=== PATIENT | male | born 2000 | race Caucasian/White ===

== ENCOUNTER 2022-04-16 03:28 | Emergency (ER) | payer SELFPAY ==
[~2022-04-16] VITALS: Ht 188 cm; Wt 116.0 kg
[2022-04-16] MEDS ORDERED: BACITRACIN ZINC OINT UDPKT TOP ONE (05:30)
[2022-04-16] MEDS ORDERED: TETANUS, DIPHTHERIA, PERTUSSIS VAC/PF 0.5ML (>10YR OLD) IM ONE (05:30)
[2022-04-16] MEDS ORDERED: IBUPROFEN 800MG TABLET PO ONE (05:45)
[2022-04-16] MEDS ORDERED: IBUP-2030 MT (07:21)
[2022-04-16] MEDS ORDERED: BO1 TP (07:21)
[2022-04-16 08:03] VITALS: BP 139/68
== END 2022-04-16 08:03 | disposition home or self-care (01) ==
LOC: ER 03:28
DX: S80.211A Abrasion, right knee, initial encounter (principal); V27.0XXA Motorcycle driver injured in collision with fixed or stationary object in nontraffic accident, initial encounter; Y93.89 Activity, other specified; Y92.488 Other paved roadways as the place of occurrence of the external cause
CPT/HCPCS: 73562; 73590; 90471; 90715; 99284; L1830; Z7610